=== PATIENT | female | born 1990 | race Caucasian/White ===

== ENCOUNTER 2017-09-13 13:34 | Emergency (ER) | payer SELFPAY ==
[2017-09-13 13:41] VITALS: BP 109/68
[2017-09-13] MEDS ORDERED: MOTRIN PO ONE ×2 (18:38→18:39)
[2017-09-13] MEDS ORDERED: TRIMOX PO ONE (18:39)
[2017-09-13] MEDS ORDERED: CORTISPORIN AS ONE (18:43)
--- NOTE | 2017-09-13 18:49 | Emergency Department Report ---
ED ENT HPI - General Chief complaint: Earache Stated complaint: RIGHT EAR SWOLLEN AND NECK PAIN Time Seen by Provider: 09/13/17 18:39 Source: patient Mode of arrival: Ambulatory Limitations: No Limitations - History of Present Illness MD complaint: ear pain -: days(s) (3) Location: R ear Severity: moderate Severity scale (0 -10): 3 Quality: aching Consistency: constant Improves with: none Worsens with: none Context-Epistaxis: other (sick contacts coughing) Context- Ear: recent illness Associated Symptoms: denies: fever, cough, gum swelling, toothache, pain with swallowing, sore throat, tinnitus, hearing loss, discharge from ear, rhinorrhea , other - Related Data Previous Rx's Medication Instructions Recorded Last Taken Type Amoxicillin [Trimox CAP] 1,000 mg PO ONCE #30 capsule 09/13/17 Unknown Rx Ibuprofen [Motrin 600 MG tab] 600 mg PO ONCE PRN #24 tablet 09/13/17 Unknown Rx Neomy/Polymyx B/Hc Otic Susp 4 drops AD TID 10 Days #1 bottle 09/13/17 Unknown Rx [Cortisporin (Otic) Susp] Allergies Allergy/AdvReac Type Severity Reaction Status Date / Time No Known Allergies Allergy Unverified 09/13/17 13:41 ED Dental HPI - General Chief complaint: Earache Stated complaint: RIGHT EAR SWOLLEN AND NECK PAIN Time Seen by Provider: 09/13/17 18:39 Source: patient Mode of arrival: Ambulatory Limitations: No Limitations - Related Data Previous Rx's Medication Instructions Recorded Last Taken Type Amoxicillin [Trimox CAP] 1,000 mg PO ONCE #30 capsule 09/13/17 Unknown Rx Ibuprofen [Motrin 600 MG tab] 600 mg PO ONCE PRN #24 tablet 09/13/17 Unknown Rx Neomy/Polymyx B/Hc Otic Susp 4 drops AD TID 10 Days #1 bottle 09/13/17 Unknown Rx [Cortisporin (Otic) Susp] Allergies Allergy/AdvReac Type Severity Reaction Status Date / Time No Known Allergies Allergy Unverified 09/13/17 13:41 ED Review of Systems ROS: Stated complaint: RIGHT EAR SWOLLEN AND NECK PAIN Other details as noted in HPI Comment: All other systems reviewed and negative ED Past Medical Hx - Past Medical History Previous Medical History?: No - Surgical History Past Surgical History?: No - Social History Smoking Status: Never Smoker Substance Use Type: None - Medications Home Medications: Home Medications Medication Instructions Recorded Confirmed Last Taken Type Amoxicillin [Trimox CAP] 1,000 mg PO ONCE #30 capsule 09/13/17 Unknown Rx Ibuprofen [Motrin 600 MG tab] 600 mg PO ONCE PRN #24 tablet 09/13/17 Unknown Rx Neomy/Polymyx B/Hc Otic Susp 4 drops AD TID 10 Days #1 bottle 09/13/17 Unknown Rx [Cortisporin (Otic) Susp] ED Physical Exam - General Limitations: No Limitations - Other Other exam information: GENERAL: Patient in no acute distress HEAD: Normocephalic, atraumatic EYES: PERRLA, EOM intact, no scleral icterus, visual padilla and acuity wnl NOSE: No tenderness, discharge, sinus tenderness MOUTH: No erythema, bleeding, exudate HEART: Regular rate and rhythm, no murmur, S1-S2 are auscultated, pulses are symmetric LUNGS: bilateral breath sounds. No wheezing, rales, rhonchi ABDOMEN: Normal bowel sounds, no tenderness, no rebound, no guarding, no masses , no CVA tenderness MUSCULOSKELETAL: Normal joint range of motion, no redness, no swelling, no tenderness NEUROLOGIC: GCS 15, Alert and Oriented x3, Cranial nerves intact, normal sensation, normal strength, normal gait, no cerebellar deficit SKIN: Skin is warm and dry, no wounds, no rashes EARS: Right external ear swelling, erythema and tenderness. Right TM erythema. ED Course Vital Signs 09/13/17 13:38 Temperature 98.5 F Pulse Rate 80 Respiratory 18 Rate Blood Pressure 109/68 O2 Sat by Pulse 99 Oximetry ED Medical Decision Making - Medical Decision Making Patient comfortable. Plan discharge with outpatient follow up. Patient agrees with plan and will return if symptoms worsen. Critical care attestation.: If time is entered above; I have spent that time in minutes in the direct care of this critically ill patient, excluding procedure time. ED Disposition Clinical Impression: Otitis externa Qualifiers: Otitis externa type: unspecified type Chronicity: acute Laterality: right Qualified Code(s): H60.501 - Unspecified acute noninfective otitis externa, right ear Otitis media Qualifiers: Otitis media type: unspecified Chronicity: acute Qualified Code(s): H66.90 - Otitis media, unspecified, unspecified ear Disposition: DC-01 TO HOME OR SELFCARE Is pt being admited?: No Condition: Stable Instructions: Otitis Externa (ED), Otitis Media (ED) Prescriptions: Amoxicillin [Trimox CAP] 1,000 mg PO ONCE #30 capsule Ibuprofen [Motrin 600 MG tab] 600 mg PO ONCE PRN #24 tablet PRN Reason: Pain Neomy/Polymyx B/Hc Otic Susp [Cortisporin (Otic) Susp] 4 drops AD TID 10 Days # 1 bottle Referrals: [facility]] - 2-3 Days Time of Disposition: 18:47
[2017-09-13] MEDS ORDERED: CORTISPORIN AD ONE (19:52)
== END 2017-09-13 19:21 | disposition home or self-care (01) ==
LOC: ED 13:34
DX: H60.501 Unspecified acute noninfective otitis externa, right ear (principal); H66.91 Otitis media, unspecified, right ear
CPT/HCPCS: 99282